=== PATIENT | male | born 1975 ===

== ENCOUNTER 2024-11-27 08:12 | Emergency (ER) | payer OTHER, SELFPAY ==
[2024-11-27 08:19] VITALS: BP 162/93; BMI 22.6
[2024-11-27 08:20] VITALS: BP 162/93
--- NOTE | 2024-11-27 08:21 | ED.GENMED ---
History of Present Illness
General
Chief Complaint: Chest Pain
Source: patient
Exam Limitations: none
Time Seen by Provider: 11/27/24 08:13
History of Present Illness
History of Present Illness:
See MDM
Past History
Past History
ED Past Medical History: HTN
ED Past Surgical History: Other (Percutaneous GB drain)
Social History
Tobacco: Non-smoker
Alcohol: None
Phy Exam
Physical Exam
Physical Exam:
See MDM
Scores
Heart Score for Chest Pain Patients
STEMI patient?: No
History: Slightly or Non-Suspicious
ECG: Normal
Age: >45 - <65 years
Risk Factors: No Risk Factors
Troponin: </= Normal Limit
Heart Score for Chest Pain Patients: 1
Heart Score Risk: 2.5% MACE over next 6 weeks
Course
Orders/Labs/Results
Orders:
Orders
11/27/24 08:20
Electrocardiogram (*1) Urgent
Reason for Study: Chest Pain
CT Chest PE Study Urgent
Comment: Recent Gall bladder surgery
Reason For Exam: Chest pain
EKG- Treatment ONCE
Morphine Sulfate 4 mg IV NOW STA
Ondansetron Injectable [Zofran] 4 mg IV NOW STA
11/27/24 08:42
Complete Blood Count/With Diff Urgent
Comprehensive Metabolic Panel Urgent
Troponin I Urgent
Abnormal Lab Results
11/27/24
08:42
RBC 3.47 L 10^6/uL
(4.70-6.10)
Hgb 8.7 L g/dL
(13.0-18.0)
Hct 26.5 L %
(39.0-52.0)
MCV 76.4 L fL
(80.0-94.0)
MCH 25.1 L pg
(27.0-31.0)
MCHC 32.8 L g/dL
(33.0-37.0)
RDW 15.8 H %
(11.5-14.5)
Absolute Monos (auto) 0.7 H 10^3/uL
(0.1-0.6)
Monocytes % 9.9 H %
(1.7-9.3)
Creatinine 0.6 L mg/dL
(0.7-1.3)
Alkaline Phosphatase 223 H U/L
(38-126)
11/27/24 08:42
11/27/24 08:42
Vital Signs
Initial and Last Documented VS:
Initial Vital Signs
BP Pulse Ox
162/93 100
11/27/24 08:19 11/27/24 08:19
Last Documented Vital Signs
Temp Pulse Resp BP Pulse Ox
98.8 F 77 16 142/90 99
11/27/24 08:20 11/27/24 09:45 11/27/24 09:45 11/27/24 10:38 11/27/24 10:38
MDM/Problems Addressed
Differential Diagnosis Includes:
Note:
CHIEF COMPLAINT(S)
- Chest pain
- Headache
HISTORY OF PRESENT ILLNESS
The patient is a 49-year-old male presenting with chest pain and a headache that began today. The patient has a significant recent medical history of gallbladder issues and an epidural back abscess. Patient has required percutaneous gallbladder
drain and currently receiving IV antibiotics through PICC line. He presents from [facility]. He has also been experiencing hypertension, treated with medication. The patient reports that his elevated blood potassium levels necessitated a change in
medication. He has been somewhat bed-bound recently. The patient denies any nausea, shortness of breath, or cough. Patient was brought to the emergency department from [facility] to evaluate his chest pain
CHRONIC MEDICAL CONDITIONS SIGNIFICANTLY AFFECTING CARE
- Hypertension
- Epidural abscess
PHYSICAL EXAM
General: Alert, no acute distress.
Skin: Right upper quadrant percutaneous drain without surrounding cellulitis
Head: Normocephalic, atraumatic.
Neck: Supple, trachea midline.
Eye, Ears, Nose, Mouth and Throat: Oral mucosa moist.
Cardiovascular: Regular rate and rhythm
Respiratory: Respirations are non-labored.. Lungs clear
Gastrointestinal: Abdomen nondistended.
Back: Normal range of motion, Normal alignment.
Musculoskeletal: Normal ROM, normal strength.
Neurological: No focal neurological deficit observed.
Psychiatric: Cooperative, appropriate mood & affect.
PLAN
- Perform a CT scan of the chest to rule out pulmonary embolism or other clots.
- Order troponin and other relevant labs to evaluate cardiac status.
- Administer pain management medications as needed.
- Continue antibiotics via the PICC line.
DIFFERENTIAL DIAGNOSIS
The Differential Diagnosis includes, in no particular order and is not limited to:
1. Myocardial Infarction
2. Pulmonary Embolism
3. Aortic Dissection
4. Pericarditis
5. Pleuritis
6. Gastroesophageal Reflux Disease (GERD)
7. Costochondritis
8. Anxiety or Panic Disorder
9. Pneumonia
10. Musculoskeletal Pain
EKG
My independent EKG interpretation is:
- Time of EKG: Not specified
- Rhythm: Not specified
- Heart Rate: 80 beats per minute
- ME Interval: Within normal limits
- QRS Duration: Within normal limits
- QT Interval: Within normal limits
- [place]: Normal
- ST Segment: No ST elevation
- T Wave: Not specified
- Arrhythmias: Not specified
- Other Abnormalities: Not specified
SUMMARY OF ENCOUNTER
The patient, a 49-year-old male, presented to the emergency department with chest pain and a headache. The evaluation included an EKG and a CT scan of the chest. The EKG showed no ischemic changes, and the troponin levels were negative, suggesting a
low likelihood of acute coronary syndrome. The CT scan ruled out a pulmonary embolism but did show signs of atelectasis and possible pneumonitis. Hence, the patients chest pain was determined to be non-cardiac in nature.
DISPOSITION
Discharge to go back to [facility] as the patient is stable and feeling better.
ASSESSMENT
Non-cardiac chest pain; possible atelectasis or pneumonitis.
PLAN
- Discharge with a diagnosis of non-cardiac chest pain and atelectasis.
- Continue care at [facility].
INDEPENDENT REVIEW OF LABS AND INTERPRETATION OF TESTS
My independent review of troponin indicates negative results, reducing the likelihood of acute coronary syndrome.
My independent CT scan interpretation is negative for pulmonary embolism but shows evidence of atelectasis and possible pneumonitis.
MEDICAL DECISION MAKING
-Complexity of Data Reviewed: Chronic conditions affecting care [hypertension, gallbladder issues, epidural back abscess]. Differential Diagnosis includes Myocardial Infarction, Pulmonary Embolism, Aortic Dissection, Pericarditis, Pleuritis,
Gastroesophageal Reflux Disease (GERD), Costochondritis, Anxiety or Panic Disorder, Pneumonia, Musculoskeletal Pain.
-Data:
Category 1
My independent interpretation of EKG shows no ischemic changes.
My independent CT scan interpretation is negative for pulmonary embolism, but indicates atelectasis and possible pneumonitis.
-Risk:
Consideration of Admission/Observation: Escalation of care including admission/observation was considered given the complexity and risk of the patients presenting complaint, exam findings, and/or their underlying comorbidities. However, ultimately I
feel the patient is safe for outpatient management with close follow-up. Reasoning: Work-up reassuring, does not reveal any acute life/organ-threatening processes, patients symptoms well controlled upon reevaluation, reexamination is reassuring,
vitals are stable, patient agreeable with discharge, reliable for follow-up.
DIAGNOSIS
Non-cardiac chest pain (ICD-10: R07.89)
Atelectasis (ICD-10: J98.11)
Possible Pneumonitis (ICD-10: J18.9)
*Pulse Oximetry
Patient hypoxic: no
*Critical Care Note
Total Time (30-74mins, 75-104mins- exclusive of procedures): Not Applicable
ED Attending Note
-
Portions of this chart may have been created with voice recognition software.� Occasional wrong word or��sound alike� substitutions may have occurred due to the inherent limitations of voice recognition software.
Discharge Plan
Departure
Patient Disposition: Acute Rehab Facility
Date of Disposition: 11/27/24
Time of Disposition: 10:49
Patient with high blood pressure during this ER visit?: No
Discharge Problem:
Chest pain
Instructions: Chest Pain PCP Follow Up
Prescriptions:
No Action
polyethylene glycol 3350 [Miralax] 17 gram Powder In Packet
17 g PO PRN PRN (Reason: constipation)
enalapril maleate [Vasotec] 5 mg Tablet
5 mg PO DAILY
famotidine 20 mg Tablet
20 mg PO BID
gabapentin 300 mg Capsule
300 mg PO TID
cefazolin in sterile water 2 gram/20 mL Syringe
20 ml IV Q8H
magnesium oxide 400 mg magnesium Tablet
400 mg PO DAILY
Referrals:
Suzie Segura MD [Family Provider, Internal Medicine]
Activity Restrictions/Additional Instructions:
Whenever you are cleared from rehab, please follow-up with your primary care doctor to discuss your symptoms. Please return for worsening symptoms.
Interventions
Interventions:
*Risk Screen - Suicide Last Done: 11/27/24 09:13
*General Assessment Last Done: 11/27/24 08:20
*Neglect/Abuse Screening Last Done: 11/27/24 10:33
*ED- Fall Risk Assessment Last Done: 11/27/24 08:20
*ED COVID-19 Vaccine History Last Done: 11/27/24 08:20
ED- Cardiac Assessment Last Done: 11/27/24 09:13
Discharge Date and Time
Print Language: UGANDAN
[2024-11-27] MEDS: MORPHINE SULFATE 4 MG IV (08:37)
[2024-11-27] MEDS: ZOFRAN 4 MG IV (08:37)
[2024-11-27 08:49] LABS: Hematocrit 26.5 % (39.0-52.0); Hemoglobin 8.7 g/dL (13.0-18.0); Mean Corp Hgb Conc. 32.8 g/dL (33.0-37.0); Mean Corpuscular Volume 76.4 fL (80.0-94.0); Nucleated Red Blood Cells % 0 % (-); Platelet Count 290 10^3/uL (130-400); Red Cell Dist. Width 15.8 % (11.5-14.5)
[2024-11-27 09:00] VITALS: BP 143/88
[2024-11-27 09:01] LABS: ALT (SGPT) 33 U/L (0-50); AST (SGOT) 34 U/L (17-59); Albumin 3.8 g/dl (3.5-5.0); Alkaline Phosphatase 223 U/L (38-126); Blood Urea Nitrogen 13 mg/dl (9-20); Calcium 9.3 mg/dl (8.4-10.2); Carbon Dioxide 30 mmol/L (22-30); Chloride 104 mmol/L (98-107); Estimated Creatinine Clearance > 125 ml/min; Glucose 97 mg/dl (70-99); Potassium 4.1 mmol/L (3.5-5.1); Sodium 139 mmol/L (135-145); Total Protein 8.1 g/dl (6.3-8.2); eGFR > 60.00
[2024-11-27 09:13] LABS: Troponin I < 0.012 ng/ml
[2024-11-27 10:38] VITALS: BP 142/90
== END 2024-11-27 11:20 ==
LOC: EMR 08:12
PROVIDERS: EMERGENCY PHYSICIAN Student in an Organized Health Care Education/Training Program; FAMILY PHYSICIAN Internal Medicine
DX: R07.89 Other chest pain (principal); J98.11 Atelectasis; I10 Essential (primary) hypertension
CPT/HCPCS: 96374; 96375; 99284; 71275; 80053; 84484; 85025; 93005; Q9967